=== PATIENT | female | born 1990 | race Caucasian/White ===

== ENCOUNTER 2019-12-09 11:31 | Emergency (ER) | payer MEDICAID ==
[~2019-12-09] VITALS: Ht 170.2 cm; Wt 83.9 kg
[2019-12-09 11:38] VITALS: Ht 170.2 cm; Wt 83.9 kg
[2019-12-09 12:34] LABS: BASOPHIL % 0.6 % (0-2); PLATELET COUNT 212 x10^3mcL (130-400)
[2019-12-09 12:54] LABS: CARBON DIOXIDE 29.5 mmol/L (21-32); CHLORIDE SERUM 102 mmol/L (98-107); CREATININE SERUM 1.1 mg/dL (0.6-1.0); GFR1 > 60 mL/min; GLUCOSE SERUM 111 mg/dL (74-106); POTASSIUM SERUM 4.2 mmol/L (3.5-5.1); SODIUM SERUM 138 mmol/L (136-145)
[2019-12-09 12:59] LABS: ALBUMIN 4.2 g/dL (3.4-5.0); ALKALINE PHOSPHATASE 62 U/L (46-116); ALT/SGPT 47 U/L (14-59); AST/SGOT 49 U/L (15-37); BILIRUBIN TOTAL 0.4 mg/dL (0.20-1.00)
[2019-12-09 13:20] LABS: TOTAL PROTEIN, SERUM 8.4 g/dL (6.4-8.2)
[2019-12-09 14:43] VITALS: BP 118/63
== END 2019-12-09 14:43 | disposition home or self-care (01) ==
LOC: ED 11:31
PROVIDERS: Emergency Medicine
DX: I87.8 Other specified disorders of veins (principal); I87.2 Venous insufficiency (chronic) (peripheral); Z86.2 Personal history of diseases of the blood and blood-forming organs and certain disorders involving the immune mechanism
CPT/HCPCS: 83880

== ENCOUNTER 2020-02-29 20:53 | Emergency (ER) | payer OTHER ==
[~2020-02-29] VITALS: Ht 170.2 cm; Wt 145.6 kg
[2020-02-29 21:47] VITALS: Ht 170.2 cm; Wt 145.6 kg
[2020-02-29 23:10] VITALS: BP 131/75
== END 2020-02-29 23:10 | disposition home or self-care (01) ==
LOC: ED 20:53
DX: K29.70 Gastritis, unspecified, without bleeding (principal)

== ENCOUNTER 2020-03-09 01:42 | Emergency (ER) | payer OTHER, SELFPAY ==
[~2020-03-09] VITALS: Ht 172.7 cm; Wt 104.3 kg
[2020-03-09 01:47] VITALS: BP 127/68; Ht 172.7 cm; Wt 104.3 kg
== END 2020-03-09 02:52 | disposition home or self-care (01) ==
LOC: ED 01:42
DX: U07.1 COVID-19 (principal)
CPT/HCPCS: U0003